=== PATIENT | male | born 1970 | race African-American/Black ===

== ENCOUNTER 2020-05-25 13:11 | Emergency (ER) | payer MEDICAID ==
[~2020-05-25] VITALS: Ht 177.8 cm; Wt 103.0 kg
[2020-05-25 13:18] VITALS: BP 159/93
--- NOTE | 2020-05-25 13:22 | NUR ---
PT AMBULATED TO BED 7.
[2020-05-25] MEDS ORDERED: KETOROLAC 30 MG/ML VIAL IM ONE (13:35)
--- NOTE | 2020-05-25 13:35 | NUR ---
49 Y/O M BIB SELF, PATIENT PRESENTS TO ED WITH PELVIC PAIN, BILATERAL FLANK PAIN AND BURNING SENSATION DURING URINATION. PT STATES SYMPTOMS STARTED LAST WEEK, BLOOD IN URINE, HESITENCY, INCREASED FREQUENCY. DENIES N/V/D; SKIN IS PINK/WARM/DRY; AAOX4 WITH EVEN AND STEADY GAIT; LUNGS CLEAR BL; HR EVEN AND REGULAR; PT DENIES ANY FEVER, CP, SOB, OR COUGH AT THIS TIME; PATIENT STATES PAIN OF 10/10 AT THIS TIME ONLY DURING URINATION; VSS; PATIENT POSITIONED FOR COMFORT; HOB ELEVATED; BEDRAILS UP X2; BED DOWN. ER MD MADE AWARE OF PT STATUS. PMH: NONE NKA MED: NONE
[2020-05-25 14:23] LABS: APPEARANCE,URINE SL CLOUDY (CLEAR); BILIRUBIN,URINE NEGATIVE (NEGATIVE); BLOOD, URINE TRACE-I (NEGATIVE); COLOR,URINE YELLOW (YELLOW); LEUKOCYTE ESTERASE ,URINE NEGATIVE (NEGATIVE); NITRITE, URINE NEGATIVE (NEGATIVE); UGLUCOSE NEGATIVE (NEGATIVE)
[2020-05-25] MEDS ORDERED: NAPR-54 PO (14:34)
[2020-05-25] MEDS ORDERED: PYR100 PO (14:34)
--- NOTE | 2020-05-25 14:48 | NUR ---
Patient discharged with v/s stable. Written and verbal after care instructions given and explained. Patient alert, oriented and verbalized understanding of instructions. Ambulatory with steady gait. All questions addressed prior to discharge. ID band removed. Patient advised to follow up with PMD. Rx of NAPROXEN,PHENAZOPYRIDINE given. Patient educated on indication of medication including possible reaction and side effects. Opportunity to ask questions provided and answered.
[2020-05-25 14:49] VITALS: BP 159/93
== END 2020-05-25 14:48 | disposition home or self-care (01) ==
LOC: MED 13:11
DX: R30.0 Dysuria (principal); R31.9 Hematuria, unspecified; R35.0 Frequency of micturition; Z79.899 Other long term (current) drug therapy
CPT/HCPCS: 36415; 81003; 96372; 99283; J1885